=== PATIENT | male | born 1950 | race Caucasian/White ===

== ENCOUNTER 2021-08-03 02:02 | Emergency (ER) | payer BC ==
[2021-08-03 02:12] VITALS: TEMP 98.1; BMI 23.7
[2021-08-03 03:46] LABS: HEMATOCRIT 39.4 % (35.4-49); HEMOGLOBIN 13.4 GM/dL (11.7-16.9); MCH 31.2 pg (25.7-33.7); MCHC 34.1 g/dl (32.0-35.9); MEAN CELL VOLUME 91.5 fl (80-96); MEAN PLT VOLUME 7.5 fl (7.5-11.1); PLATELET COUNT 287 10^3/uL (134-434); RBC 4.31 M/mm3 (4.00-5.60); RDW 13.6 % (11.9-15.9); WHITE BLOOD COUNT 6.4 K/mm3 (4.0-10.0)
[2021-08-03 04:02] LABS: CHLORIDE 109 mmol/L (98-107); SODIUM 140 mmol/L (136-145)
[2021-08-03 04:04] LABS: CALCIUM 8.1 mg/dL (8.5-10.1)
[2021-08-03 04:05] LABS: ALBUMIN 3.2 g/dl (3.4-5.0); ANION GAP 6 MMOL/L (8-16); BLOOD UREA NITROGEN 23.6 mg/dL (7-18); CO2 26 mmol/L (21-32); GLUCOSE,RANDOM 118 mg/dL (74-106)
[2021-08-03 04:08] LABS: CREATININE 0.7 mg/dL (0.55-1.3); SGOT/AST 34 U/L (15-37); SGPT/ALT 47 U/L (13-61)
[2021-08-03 04:10] LABS: BILIRUBIN,TOTAL 0.3 mg/dL (0.2-1); TOT PROT 6.6 g/dl (6.4-8.2)
[2021-08-03 04:11] LABS: ALK PHOS 82 U/L (45-117)
[2021-08-03 06:12] VITALS: BP 150/81; PULSE 71
== END 2021-08-03 06:11 | disposition home or self-care (01) ==
LOC: JER 02:02
DX: R20.0 Anesthesia of skin (principal); M54.14 Radiculopathy, thoracic region
CPT/HCPCS: 36415; 70450-TC; 72125-TC; 80053; 84484; 85027; 85730; 93005; 93010; 99285-25

== ENCOUNTER 2021-09-08 07:34 | Day surgery (SDC) | payer BC, OTHER ==
[2021-09-07 12:56] VITALS: BMI 26.6
[2021-09-08 08:23] VITALS: TEMP 97.9
[2021-09-08] MEDS ORDERED: LIDOCAINE HCL 1%, 10 MG/ML (20ML VIAL) ONE (08:46)
[2021-09-08] MEDS ORDERED: BUPIVACAINE HCL 50 ML ONE (08:47)
[2021-09-08] MEDS ORDERED: MIDAZOLAM HCL 2 MG/2 ML SINGLE DOSE VIAL ONE (08:47)
[2021-09-08] MEDS ORDERED: PROPOFOL 20 ML ONE (08:47)
[2021-09-08] MEDS ORDERED: ONDANSETRON 4 MG/2 ML VIAL ONE (09:35)
[2021-09-08] MEDS ORDERED: ceFAZolin SODIUM 1 GM VIAL ONE (09:35)
[2021-09-08] MEDS ORDERED: DEXAMETHASONE SOD PHOSPHATE 4 MG/1 ML VIAL ONE (09:35)
[2021-09-09 09:16] VITALS: BP 116/67; PULSE 72
== END 2021-09-08 11:10 | disposition home or self-care (01) ==
LOC: FASU 07:34
PROVIDERS: ATTEND Orthopaedic Surgery
PROC: 0LB70ZZ Excision of Right Hand Tendon, Open Approach (ICD-10-PCS; 2021-09-08)
PROC: 01N50ZZ Release Median Nerve, Open Approach (ICD-10-PCS; principal; 2021-09-08 09:22)
DX: G56.01 Carpal tunnel syndrome, right upper limb (principal); M65.9 Synovitis and tenosynovitis, unspecified
CPT/HCPCS: 88304-TC